=== PATIENT | male | born 1940 | race Caucasian/White ===

== ENCOUNTER 2022-03-01 06:33 | Observation (INO) | payer MEDICARE ==
[2022-02-28 12:15] LABS: BASOPHILS # (AUTO) 0.1 (0.0-0.1); BASOPHILS % 0.7 % (0.0-1.0); EOSINOPHILS # (AUTO) 0.3 (0.0-0.4); EOSINOPHILS % 4.3 % (0.0-6.0); HEMATOCRIT 46.7 % (38.2-49.6); LYMPHOCYTES # (AUTO) 1.2 (1.0-3.2); LYMPHOCYTES % 18.4 % (18.0-39.1); MEAN CORPUSCULAR HGB CONC 32.1 g/dL (31-35); MEAN CORPUSCULAR VOLUME 99.6 fL (81-99); MONOCYTES # (AUTO) 0.8 (0.2-0.8); MONOCYTES % 11.7 % (4.4-11.3); NEUTROPHILS # (AUTO) 4.3 (2.1-6.9); PLATELET COUNT 195 x10e3/uL (140-360); RED BLOOD COUNT 4.69 x10e6/uL (4.3-5.7); RED CELL DISTRIBUTION WIDTH 13.5 % (11.7-14.4)
[2022-02-28 12:43] LABS: ALANINE AMINOTRANSFERASE 25 IU/L (0-55); ALBUMIN 4.2 g/dL (3.5-5.0); ALBUMIN/GLOBULIN RATIO 1.5 (0.8-2.0); ALKALINE PHOSPHATASE 44 IU/L (40-150); ANION GAP 12.2 mmol/L (8-16); BLOOD UREA NITROGEN 14 mg/dL (7-26); BUN/CREATININE RATIO 17 (6-25); CALCIUM 9.8 mg/dL (8.4-10.2); CARBON DIOXIDE 31 mmol/L (22-29); CHLORIDE 104 mmol/L (98-107); CREATININE, SERUM 0.83 mg/dL (0.72-1.25); GLUCOSE 93 mg/dL (74-118); POTASSIUM 4.2 mmol/L (3.5-5.1); SODIUM 143 mmol/L (136-145)
[~2022-03-01] VITALS: Ht 180.3 cm; Wt 80.3 kg
[~2022-03-01 06:33] MED LIST: METOPROLOL SUCC50 MG PO; NAPROXEN250 MG PO; OLMESARTAN-HCT1 EAC1 PO; VITAMIN C500 MG PO; ZYRTEC10 MG PO
[2022-03-01] MEDS ORDERED: DEXAMETHASONE SOD PHOS 10 MG/1 ML VIAL ONE (07:25)
[2022-03-01] MEDS ORDERED: GABAPENTIN 300 MG CAP ONE (07:25)
[2022-03-01] MEDS ORDERED: CELECOXIB 200 MG CAP ONE (07:25)
[2022-03-01] MEDS ORDERED: ROPIVACAINE 246.25 MG, EPINEPHRINE HCL 1:1000 1ML 0.5 MG, CLONIDINE HCL 0.08 MG, KETORO... INJ ONE ×5 (08:00)
[2022-03-01] MEDS ORDERED: SODIUM CHLORIDE 0.9% 500ML 500 ML ONE (08:45)
[2022-03-01] MEDS ORDERED: TRANEXAMIC ACID 20 ML ONE (08:45)
[2022-03-01] MEDS ORDERED: Vancomycin IV 1,000 MG ONE (08:45)
[2022-03-01] MEDS ORDERED: FENTANYL CITRATE/PF 100MCG/2 ML INJ ONE ×2 (11:51→13:16)
[2022-03-01] MEDS ORDERED: HYDROMORPHONE 1MG/1ML INJ ONE (12:07)
[2022-03-01] MEDS ORDERED: ONDANSETRON HCL INJ 2MG/ML 2ML 2 MG/ML VIAL IV PRN (12:15)
[2022-03-01] MEDS ORDERED: DIPHENHYDRAMINE HCL INJ 50 MG/ML VIAL IV PRN (12:15)
[2022-03-01] MEDS ORDERED: ZOLPIDEM TARTRATE 5 MG TAB PO PRN (12:15)
[2022-03-01] MEDS ORDERED: DOCUSATE SODIUM 100 MG CAP PO PRN (12:15)
[2022-03-01] MEDS ORDERED: SODIUM CHLORIDE 0.9% 1000ML 1,000 ML IV SCH (12:15)
[2022-03-01] MEDS ORDERED: HYDROCODONE/APAP 5MG-325MG TAB PO PRN (12:15)
[2022-03-01] MEDS ORDERED: HYDROCODONE/APAP 7.5MG-325MG 1 EA TAB PO PRN (12:15)
[2022-03-01] MEDS ORDERED: HYDRALAZINE HCL 20 MG/ML VIAL ONE (12:21)
[2022-03-01] MEDS ORDERED: HYDROCODON-ACE1 EA12 PO (13:01)
[2022-03-01 14:43] VITALS: BP 141/98
[2022-03-01] MEDS ORDERED: ASPIRIN81 MG PO (15:48)
[2022-03-01 16:22] LABS: BASOPHILS % 0.2 % (0.0-1.0); EOSINOPHILS % 0.1 % (0.0-6.0); HEMATOCRIT 45.8 % (38.2-49.6); LYMPHOCYTES # (AUTO) 0.5 (1.0-3.2); LYMPHOCYTES % 3.7 % (18.0-39.1); MEAN CORPUSCULAR HEMOGLOBIN 32.5 pg (28-32); MEAN CORPUSCULAR HGB CONC 32.8 g/dL (31-35); MEAN CORPUSCULAR VOLUME 99.3 fL (81-99); MONOCYTES # (AUTO) 0.3 (0.2-0.8); MONOCYTES % 2.1 % (4.4-11.3); NEUTROPHILS # (AUTO) 12.4 (2.1-6.9); NEUTROPHILS % 93.1 % (38.7-80.0); PLATELET COUNT 216 x10e3/uL (140-360); RED BLOOD COUNT 4.61 x10e6/uL (4.3-5.7); RED CELL DISTRIBUTION WIDTH 13.4 % (11.7-14.4)
[2022-03-01 16:31] VITALS: BP 157/90
[2022-03-01 16:39] LABS: ANION GAP 17.7 mmol/L (8-16); CALCIUM 9.4 mg/dL (8.4-10.2); CREATININE, SERUM 0.81 mg/dL (0.72-1.25); POTASSIUM 3.7 mmol/L (3.5-5.1)
[2022-03-01] MEDS ORDERED: CELECOXIB 100 MG CAP PO SCH (17:00)
[2022-03-01] MEDS ORDERED: ASPIRIN 325 MG TAB PO SCH (17:00)
[2022-03-01] MEDS ORDERED: ACETAMINOPHEN 1000 MG/100 ML IV PRN (18:00)
[2022-03-01] MEDS ORDERED: GLYCOPYRROLATE INJ 0.2 MG/ML VIAL IV ONE (18:41)
[2022-03-01] MEDS ORDERED: SEVOFLURANE INHAL SOLN 250 ML PEN BTL INH ONE (18:41)
[2022-03-01] MEDS ORDERED: PROPOFOL IV EMULSION 10 MG/ML 20 ML VIAL IV ONE (18:41)
[2022-03-01] MEDS ORDERED: POVIDONE IODINE 0.05% 0.05 % ML PO ONE (18:41)
[2022-03-01] MEDS ORDERED: DEXAMETHASONE SOD PHOS INJ 4 MG/ML SDV IV ONE (18:41)
[2022-03-01] MEDS ORDERED: LIDOCAINE HCL 2% LOCAL INJ 5 ML SDV VIAL INJ ONE (18:41)
[2022-03-01] MEDS ORDERED: ONDANSETRON HCL INJ 2MG/ML 2ML 2 MG/ML VIAL IV ONE (18:41)
[2022-03-01] MEDS ORDERED: ROPIVACAINE 0.5% 5 MG/ML 30 ML SDV INJ ONE (18:41)
== END 2022-03-01 18:42 | disposition home or self-care (01) ==
LOC: OR 06:33 → PACU V 12:30 → MED/SURG 14:52
PROVIDERS: ADMIT Specialist; ATTEND Specialist
DX: M17.11 Unilateral primary osteoarthritis, right knee (principal); Z20.822 Contact with and (suspected) exposure to COVID-19; I10 Essential (primary) hypertension; R01.1 Cardiac murmur, unspecified
CPT/HCPCS: 0223U; 27447; 36415 ×2; 71046; 73560; 80048; 80053; 85025 ×2; 86850; 86900; 86920; 97110 ×2; 97116 ×2; 97161; 97530 ×2; C1713 ×2; C1776 ×2; G0378; J0171; J0360; J0690; J1100 ×2; J1170; J1885; J2001; J2405; J2704; J2795; J3010; J3370; J7040